=== PATIENT | female | born 1965 | race Caucasian/White ===

== ENCOUNTER 2016-05-30 17:22 | Emergency (ER) | payer MEDICARE, OTHER, MEDICAID ==
[~2016-05-30] VITALS: Ht 175.3 cm; Wt 112.7 kg
[~2016-05-30 17:22] MED LIST: ACCURETIC 25 MG1 TAB PO; ASPIRIN 81M81 MG/TA2 PO; CARDI-OMEGA1000 MG PO; CLARINEX 5MG5 MG PO; CYMBALTA 60MG60 MG PO; DARVOCET-N-101 UDTAB PO; DESYREL 50MG50 MG PO; FISH OIL 1000MG1 CAP PO; FISH OIL CONC1000 MG PO; JANUMXR1000-50 PO; LISINOPRIL; MVI; NEURONTIN300 MG/CAP PO; RESTORIL30 MG PO; SKELAXIN 800MG800 MG PO; TIROSINT100 MC1 PO; ZETIA 10MG TAB10 MG PO; ZYLOPRIM 300MG300 MG PO; ZYRTEC10MGSGL PO
[2016-05-30 17:25] VITALS: TEMP 98
[2016-05-30] MEDS ORDERED: SYNTHROID0.125 MG/T PO (17:39)
[2016-05-30] MEDS ORDERED: NEURONTIN600 MG/TAB PO (17:41)
[2016-05-30] MEDS ORDERED: ZYLOPRIM 100MG100 MG PO (17:44)
[2016-05-30 18:35] VITALS: BP 121/84
[2016-05-30] MEDS ORDERED: PREDNISONE20 MG PO (18:41)
[2016-05-30] MEDS ORDERED: VOLTAREN 75 DR75 MG PO (18:41)
[2016-05-30 18:53] VITALS: PULSE 86
== END 2016-05-30 18:53 | disposition home or self-care (01) ==
LOC: COL.ER 17:22
DX: M54.2 Cervicalgia (principal); M54.6 Pain in thoracic spine; E11.9 Type 2 diabetes mellitus without complications; I10 Essential (primary) hypertension; W01.198A Fall on same level from slipping, tripping and stumbling with subsequent striking against other object, initial encounter; Y92.009 Unspecified place in unspecified non-institutional (private) residence as the place of occurrence of the external cause; Z79.84 Long term (current) use of oral hypoglycemic drugs; M47.816 Spondylosis without myelopathy or radiculopathy, lumbar region; M47.814 Spondylosis without myelopathy or radiculopathy, thoracic region
CPT/HCPCS: J1885; J7512

== ENCOUNTER → 2016-07-15 | Outpatient (REF) ==
[~2016-07-15] MED LIST changes: +NEURONTIN600 MG/TAB PO; +PREDNISONE20 MG PO; +SYNTHROID0.125 MG/T PO; +VOLTAREN 75 DR75 MG PO; +ZYLOPRIM 100MG100 MG PO
[2016-07-15 11:50] LABS: THYROID STIMULATING HORMONE 1.17 uIU/mL (0.465-4.680)
== END ==
LOC: ZLAB.WCH 10:36
PROVIDERS: Internal Medicine
DX: Z01.89 Encounter for other specified special examinations (principal)

== ENCOUNTER 2016-07-20 10:12 | Outpatient (RCR) | payer MEDICARE, OTHER, MEDICAID | END 2016-10-18 | disposition home or self-care (01) | LOC: MKS.ESL.PT | DX: E11.40 Type 2 diabetes mellitus with diabetic neuropathy, unspecified (principal) ==

== ENCOUNTER 2016-09-05 14:00 | Outpatient (RCR) | payer MEDICARE, OTHER, MEDICAID | END 2016-10-18 | disposition home or self-care (01) | LOC: MKS.ESL.PT | DX: E11.40 Type 2 diabetes mellitus with diabetic neuropathy, unspecified (principal) | CPT/HCPCS: G8978-GP; G8979-GP ==

== ENCOUNTER → 2017-01-12 | Outpatient (REF) | LOC: ZLAB.WCH 19:50 | DX: Z01.89 Encounter for other specified special examinations (principal) ==

== ENCOUNTER → 2017-06-15 | Outpatient (REF) | LOC: ZLAB.WCH 18:05 | DX: Z01.89 Encounter for other specified special examinations (principal) ==

== ENCOUNTER 2017-07-11 06:43 | Outpatient (CLI) | payer MEDICARE ==
[2017-07-11] VITALS (7 sets, daily range): BP systolic 104–150; BP diastolic 41–80; PULSE 79–93
[~2017-07-11] VITALS: Ht 175.3 cm; Wt 114.1 kg
[~2017-07-11 06:43] MED LIST changes: +GLUCOPHAGE500 MG/TAB PO; +MELATONIN5 M1 SL; +VICTOZA6 MG/ML SQ
== END 2017-07-11 09:45 | disposition home or self-care (01) ==
LOC: COL.RAD 06:43
DX: M47.26 Other spondylosis with radiculopathy, lumbar region (principal)
CPT/HCPCS: Q9965

== ENCOUNTER → 2017-10-05 | Outpatient (CLI) | payer MEDICARE | LOC: MC.RAD 09:25 | DX: N63.23 Unspecified lump in the left breast, lower outer quadrant (principal) ==

== ENCOUNTER → 2017-10-27 | Outpatient (REF) ==
[2017-10-27 16:51] LABS: THYROID STIMULATING HORMONE 1.57 uIU/mL (0.465-4.680)
== END ==
LOC: ZLAB.WCH 15:56
PROVIDERS: Internal Medicine
DX: Z01.89 Encounter for other specified special examinations (principal)

== ENCOUNTER → 2018-03-05 | Outpatient (REF) ==
[2018-03-05 16:37] LABS: THYROID STIMULATING HORMONE 2.34 uIU/mL (0.465-4.680)
== END ==
LOC: ZLAB.WCH 15:52
PROVIDERS: Internal Medicine
DX: Z01.89 Encounter for other specified special examinations (principal)

== ENCOUNTER → 2018-06-05 | Outpatient (REF) | LOC: ZLAB.WCH 17:09 | DX: Z01.89 Encounter for other specified special examinations (principal) ==

== ENCOUNTER → 2020-06-17 | Outpatient (CLI) | payer MEDICARE, MEDICAID | LOC: ZCOL.LAB 17:35 | DX: L89.159 Pressure ulcer of sacral region, unspecified stage (principal) ==

== ENCOUNTER → 2020-06-19 | Outpatient (CLI) | payer MEDICARE, MEDICAID | LOC: ZCOL.LAB 16:05 | DX: L89.159 Pressure ulcer of sacral region, unspecified stage (principal) ==

== ENCOUNTER 2020-07-02 07:50 | Day surgery (SDC) | payer MEDICARE, MEDICAID ==
[~2020-07-02] VITALS: Ht 172.7 cm; Wt 99.2 kg
[2020-07-02 09:16] VITALS: BP 105/56; PULSE 73; TEMP 98.2
[2020-07-02] MEDS ORDERED: PROAIR HFA0.09 MG/AC IH (09:24)
[2020-07-02] MEDS ORDERED: ZYLOPRIM 300MG300 MG PO (09:25)
[2020-07-02] MEDS ORDERED: ASPIRIN 81M81 MG/TA2 PO (09:25)
[2020-07-02] MEDS ORDERED: COLACE 100100 MG/CAP PO (09:29)
[2020-07-02] MEDS ORDERED: PEPCID 20MG TAB20 MG PO (09:30)
[2020-07-02] MEDS ORDERED: LOFIBRA160 MG PO (09:30)
[2020-07-02] MEDS ORDERED: NORCO 325 MG-7.1 TAB PO (09:31)
[2020-07-02] MEDS ORDERED: TIROSINT100 MC1 PO (09:32)
[2020-07-02] MEDS ORDERED: LANTUS100 U/ML SQ (09:32)
[2020-07-02] MEDS ORDERED: LINZESS145CAP PO (09:33)
[2020-07-02] MEDS ORDERED: CLARITIN 1010 MG/TAB PO (09:34)
[2020-07-02] MEDS ORDERED: MELATIN 3 MG-11 TAB PO (09:34)
[2020-07-02] MEDS ORDERED: LOPRESSOR 225 MG/TAB PO (09:35)
[2020-07-02] MEDS ORDERED: NOVOLIN R100 U/ML SQ (09:36)
[2020-07-02] MEDS ORDERED: AMOXICILLIN 50500 MG PO (09:37)
[2020-07-02] MEDS ORDERED: FLAGYL500 MG PO (09:38)
[2020-07-02] MEDS ORDERED: PROBIOTICA100 Milli1 PO (09:38)
[2020-07-02] MEDS ORDERED: LYRICA200 MG PO ×2 (09:39)
[2020-07-02] MEDS ORDERED: ACCURETIC 25 MG1 TAB PO (09:40)
[2020-07-02 11:23] VITALS: BP 89/51; PULSE 79
--- NOTE | 2020-07-02 11:23 | NUR ---
Patient returns to room 6 per cart from surgery and is awake and alert. Temp 98.2 and sats 96% on 2L per nasal cannula. Patient has large bulky dressing covering coccyx. IV fluids infusing. Patient is laying on her left side. Siderails up x2 and call light in reach. Allowed to rest.
[2020-07-02 11:38] VITALS: BP 98/50; PULSE 69
--- NOTE | 2020-07-02 11:38 | NUR ---
Resting without complaints of pain or nausea. Given diet Sprite to drink.
[2020-07-02 11:53] VITALS: BP 103/56; PULSE 64
--- NOTE | 2020-07-02 11:53 | NUR ---
Continues to rest on her left side. Sacral dressing remains dry.
[2020-07-02 12:08] VITALS: BP 98/53; PULSE 61
--- NOTE | 2020-07-02 12:08 | NUR ---
Attempting to sit up on side and is sipping on diet Sprite and eat muffin. Continues to deny pain or nausea.
[2020-07-02 12:23] VITALS: BP 103/61; PULSE 71
--- NOTE | 2020-07-02 12:23 | NUR ---
Continues to rest and sip on Sprite and eat muffin.
--- NOTE | 2020-07-02 12:35 | NUR ---
Assisted up to the bedside commode. Able to void. IV discontinued and site free of redness.
--- NOTE | 2020-07-02 13:09 | NUR ---
Dismissal instructions given and voices understanding of these. Provided office number for questions and concerns.
--- NOTE | 2020-07-02 13:11 | NUR ---
Patient dismissed to home driven by sister and taken to the emergency room entrance and assisted into vehicle with instructions in hand.
== END 2020-07-02 13:11 | disposition home or self-care (01) ==
LOC: SDCO 07:50
DX: L89.154 Pressure ulcer of sacral region, stage 4 (principal); I10 Essential (primary) hypertension; E78.5 Hyperlipidemia, unspecified; M19.90 Unspecified osteoarthritis, unspecified site; K21.9 Gastro-esophageal reflux disease without esophagitis; E11.42 Type 2 diabetes mellitus with diabetic polyneuropathy; E03.9 Hypothyroidism, unspecified; D64.9 Anemia, unspecified; Z90.49 Acquired absence of other specified parts of digestive tract; Z79.82 Long term (current) use of aspirin; Z88.5 Allergy status to narcotic agent; Z88.8 Allergy status to other drugs, medicaments and biological substances; Z86.16 Personal history of COVID-19
CPT/HCPCS: J0690; J1170; J1200; J2405; J2704; J7030

== ENCOUNTER 2021-09-03 10:15 | Outpatient (RCR) | payer OTHER, MEDICAID ==
[~2021-09-03 10:15] MED LIST changes: +AMOXICILLIN 50500 MG PO; +CLARITIN 1010 MG/TAB PO; +COLACE 100100 MG/CAP PO; +FLAGYL500 MG PO; +LANTUS100 U/ML SQ; +LINZESS145CAP PO; +LOFIBRA160 MG PO; +LOPRESSOR 225 MG/TAB PO; +LYRICA200 MG PO; +MELATIN 3 MG-11 TAB PO; +NORCO 325 MG-7.1 TAB PO; +NOVOLIN R100 U/ML SQ; +PEPCID 20MG TAB20 MG PO; +PROAIR HFA0.09 MG/AC IH; +PROBIOTICA100 Milli1 PO
== END 2021-09-25 | disposition home or self-care (01) ==
LOC: MKS.ESL.PT
DX: E11.42 Type 2 diabetes mellitus with diabetic polyneuropathy (principal)

== ENCOUNTER 2021-09-03 10:45 | Outpatient (RCR) | payer SELFPAY | END 2021-09-25 | disposition home or self-care (01) | LOC: MKS.ESL.PT | DX: E11.42 Type 2 diabetes mellitus with diabetic polyneuropathy (principal) ==

== ENCOUNTER → 2021-10-28 15:31 | Outpatient (RCR) | payer MEDICARE, MEDICAID, OTHER | END | disposition home or self-care (01) | LOC: MKS.ESL.PT 09-26 14:30 | DX: E11.42 Type 2 diabetes mellitus with diabetic polyneuropathy (principal) ==

== ENCOUNTER → 2023-08-16 | Outpatient (CLI) | payer MEDICARE, MEDICAID | LOC: COL.VAS 08:55 | DX: I51.7 Cardiomegaly (principal) ==